=== PATIENT | female | born 1935 | race Caucasian/White ===

== ENCOUNTER → 2016-12-13 | Outpatient (CLI) | payer OTHER ==
[~2016-12-13] MED LIST: ADULT LOW DOSE81 M1 PO; ADVAIR 100/501 DISK IH; ADVAIR HFA120 INHALA IH; ALPRAZOLAM ER1 MG PO; AMLODIPINE BESY10 MG PO; ATIVAN0.5 MG PO; Advair HFA 115/21 IH; Apresoline PO; Aspirin E.C. PO; BENADRYL25 MG PO; BENTYL20 MG PO; BUSPAR10 MG PO; CALCIUM CARBON500 M3 PO; CELEBREX200 MG PO; CELEXA40 MG PO; COUMADIN,JANTOVE5 MG PO; CUBICIN500 MG/10 IV; Catapres-TTS 2 TD; Cozaar PO; DESYREL100 MG PO; DETROL LA2 MG PO; DIABETA,MICRONAS5 MG PO; DIABETA5 MG PO; EFFEXOR XR150 MG; EFFEXOR XR150 MG PO; EFFEXOR75 MG PO; ENABLEX15 MG PO; GLUCOPHAGE500 MG PO; HYDROCODON-ACE1 EAC7 PO; HYDROCODON-ACE1 EAC8 PO; HYDRODIURIL,ORE25 MG PO; HYZAAR 100-21 TABLET PO; Habitrol,Nicoderm CQ TD; ISORDIL10 MG PO; KLONOPIN1 MG PO; LIDODERM 5% P1 PATCH TD; LO-DOSE ASPIRIN81 M1 PO; LOSARTAN POTAS100 MG PO; LOSARTAN POTASS50 MG PO; MELOXICAM15 MG PO; METFORMIN HCL500 MG PO; METOCLOPRAMIDE10 MG PO; MICRONASE2.5 MG PO; MOBIC15 MG PO; MYRBETRIQ25 MG; NEURONTIN100 MG PO; NEURONTIN300 MG PO; NEURONTIN600 MG PO; NEXIUM20 MG PO; NEXIUM40 MG PO; NITROSTAT0.4 MG PO; NORCO 5/3251 TABLET PO; NOVOLOG PE100 UNITS/ SC; Norvasc PO; PERCOCET 5/31 TABLET PO; POTASSIUM CHLO20 ME1 PO; PREDNISONE10 MG PO; PREDNISONE20 MG PO; Proventil,Ventolin H IH; REGLAN10 MG PO; REQUIP0.5 MG PO; Remove Lidoderm Patc TD; SENNA-S TABLET1 EACH PO; SENOKOT S,PE1 TABLET PO; TOFRANIL25 MG PO; TYLENOL REGULA325 MG PO; Toprol XL PO; Tylenol Regular Stre PO; VENLAFAXINE HC150 M1 PO; VICODIN 5-5001 EACH PO; VICODIN,LORT1 TABLET; XANAX1 MG PO; Xanax PO; ZANTAC150 MG PO; ZESTRIL,PRINIVI10 M1 PO
== END | disposition home or self-care (01) ==
LOC: CDC 09:41
DX: Z01.810 Encounter for preprocedural cardiovascular examination (principal); D41.4 Neoplasm of uncertain behavior of bladder
CPT/HCPCS: 93000

== ENCOUNTER 2017-03-05 09:38 | Emergency (ER) | payer OTHER ==
[~2017-03-05] VITALS: Ht 152.4 cm; Wt 75.1 kg
[2017-03-05 10:36] LABS: BASOPHIL COUNT 0.1 K/uL (0-0.1); EOSINOPHIL (%) 4.3 % (0-5); EOSINOPHIL COUNT 0.4 K/uL (0-0.3); HEMATOCRIT 35.4 % (36.0-46.0); IMMATURE GRANULOCYTE (%) 0.9 % (0.0-0.7); IMMATURE GRANULOCYTE COUNT 0.1 K/uL; INSTRUMENT ABS NEUTROPHIL CT 6.7 K/uL; LYMPHOCYTE COUNT 0.9 K/uL (1.0-2.8); MCH 27.7 PG (29.0-34.0); MCHC 29.9 G/DL (30.0-36.0); MCV 92.7 FL (83-99); MEAN PLAT.VOLUME 8.9 uM^3 (9.5-12.4); MONOCYTE COUNT 0.8 K/uL (0-0.8); NEUTROPHIL (%) 75.3 % (45-76); NEUTROPHIL COUNT 6.7 K/uL (1.8-6.4); PLATELET COUNT 218 K/uL (156-360); RBC DIS.WIDTH-CV 15.3 % (11.8-14.6); RBC DIS.WIDTH-SD 52.3 % (39-53); RED BLOOD COUNT 3.82 M/uL (3.80-5.20); WHITE BLOOD COUNT 8.9 K/uL (4.1-10.2)
[2017-03-05 10:48] LABS: CHLORIDE 98 mEq/L (99-109); SODIUM 135 mEq/L (136-147)
[2017-03-05 10:51] LABS: GLUCOSE 182 mg/dL (70-99)
[2017-03-05 10:52] LABS: ANION GAP 9 MEQ/L (2-14)
[2017-03-05 10:53] LABS: TOTAL BILIRUBIN 0.2 mg/dL (0.0-1.0)
[2017-03-05 10:54] LABS: ALKALINE PHOSPHATASE 94 IU/L (3-129); GFR ESTIMATE (CALCULATED) 38 mL/min/
[2017-03-05 10:55] LABS: UREA NITROGEN (BUN) 26 mg/dL (9-23)
[2017-03-05 12:29] LABS: ADD MIUA? YES; BILIRUBIN NEGATIVE; BLOOD SMALL; COLOR YELLOW ((YELLOW)); GLUCOSE (STRIP) NEGATIVE; KETONES NEGATIVE; LEUKOCYTES NEGATIVE; NITRITE NEGATIVE; PROTEIN (STRIP) NEGATIVE; SPECIFIC GRAVITY 1.008 (1.000-1.030); UROBILINOGEN 0.2 MG/DL (0.2-1.0)
[2017-03-05 12:39] LABS: BACTERIA NONE SEEN /HPF; EPITHELIAL CELLS RARE /HPF; MUCUS NONE SEEN /LPF; RED BLOOD CELLS 0-5 /HPF (0-5); WHITE BLOOD CELLS 0-5 /HPF (0-5)
[2017-03-05] MEDS ORDERED: VALTREX1000 MG PO (12:58)
[2017-03-05] MEDS ORDERED: COLACE100 MG PO (12:58)
[2017-03-05] MEDS ORDERED: ULTRAM50 MG PO (12:58)
[2017-03-05] MEDS ORDERED: LIDODERM 5% P1 PATCH TD (12:58)
[2017-03-05 13:44] VITALS: BP 157/65
== END 2017-03-05 13:45 | disposition home or self-care (01) ==
LOC: EME 09:38
PROVIDERS: Emergency Medicine
DX: B02.9 Zoster without complications (principal); R53.1 Weakness; J44.9 Chronic obstructive pulmonary disease, unspecified; J45.909 Unspecified asthma, uncomplicated; C67.9 Malignant neoplasm of bladder, unspecified; R93.8 Abnormal findings on diagnostic imaging of other specified body structures; E11.9 Type 2 diabetes mellitus without complications; Z99.81 Dependence on supplemental oxygen; Z79.82 Long term (current) use of aspirin; Z87.891 Personal history of nicotine dependence
CPT/HCPCS: 71010; 73502; 80053; 81003; 83605; 85025; 99281; 99284

== ENCOUNTER 2017-04-03 12:19 | Observation (INO) | payer OTHER ==
[~2017-04-03] VITALS: Ht 152.4 cm; Wt 73.8 kg
[~2017-04-03 12:19] MED LIST changes: +COLACE100 MG PO; +ULTRAM50 MG PO; +VALTREX1000 MG PO
[2017-04-03 14:49] LABS: POINT-OF-CARE METER ID UU14100415
[2017-04-03 15:09] LABS: TROP-I INTERPRETATION NEGATIVE; TROPONIN-I < 0.01 ng/mL (0.0-0.30)
[2017-04-03 15:16] LABS: CHLORIDE 108 mEq/L (99-109); POTASSIUM 5.6 mEq/L (3.7-5.4); SODIUM 141 mEq/L (136-147)
[2017-04-03 15:19] LABS: GLUCOSE 64 mg/dL (70-99)
[2017-04-03 15:20] LABS: ANION GAP 8 MEQ/L (2-14)
[2017-04-03 15:21] LABS: TOTAL BILIRUBIN 0.1 mg/dL (0.0-1.0)
[2017-04-03 15:22] LABS: ALKALINE PHOSPHATASE 79 IU/L (3-129); GFR ESTIMATE (CALCULATED) 35 mL/min/
[2017-04-03 15:23] LABS: UREA NITROGEN (BUN) 28 mg/dL (9-23)
[2017-04-03 15:31] LABS: HEMATOCRIT 32.1 % (36.0-46.0); MCH 28.2 PG (29.0-34.0); MCHC 29.9 G/DL (30.0-36.0); MCV 94.1 FL (83-99); MEAN PLAT.VOLUME 9.2 uM^3 (9.5-12.4); PLATELET COUNT 192 K/uL (156-360); RBC DIS.WIDTH-CV 15.9 % (11.8-14.6); RBC DIS.WIDTH-SD 54.4 % (39-53); RED BLOOD COUNT 3.41 M/uL (3.80-5.20); WHITE BLOOD COUNT 6.5 K/uL (4.1-10.2)
[2017-04-03 15:56] LABS: POINT-OF-CARE METER ID UU14100415
[2017-04-03] MEDS ORDERED: REQUIP1 MG PO (16:33)
[2017-04-03] MEDS ORDERED: BUSPAR15 MG PO ×2 (16:33)
[2017-04-03] MEDS ORDERED: DUONEB 2.5-0.5 M3 ML AEROSOL (16:34)
[2017-04-03] MEDS ORDERED: PERCOCET 7.51 TABLET PO (16:35)
[2017-04-03] MEDS ORDERED: OMEPRAZOLE40 M1 PO (16:36)
[2017-04-03] MEDS ORDERED: VOLTAREN 1% GE100 GM TP (16:37)
[2017-04-03] MEDS ORDERED: DIABETA2.5 MG PO (16:38)
[2017-04-03] MEDS ORDERED: KLONOPIN0.5 M1 PO (16:38)
[2017-04-03 17:44] LABS: POINT-OF-CARE METER ID UU14100415
[2017-04-03 19:36] LABS: ADD MIUA? YES; BILIRUBIN NEGATIVE; BLOOD SMALL; COLOR YELLOW ((YELLOW)); GLUCOSE (STRIP) NEGATIVE; KETONES NEGATIVE; LEUKOCYTES LARGE; NITRITE NEGATIVE; PROTEIN (STRIP) NEGATIVE; SPECIFIC GRAVITY 1.014 (1.000-1.030); UROBILINOGEN 0.2 MG/DL (0.2-1.0)
[2017-04-03 19:40] VITALS: BP 150/73
[2017-04-03 20:03] LABS: BACTERIA RARE /HPF; EPITHELIAL CELLS RARE /HPF; MUCUS TRACE /LPF; UCUL ADDED? NO; WHITE BLOOD CELLS 30-40 /HPF (0-5)
[2017-04-04] VITALS (8 sets, daily range): BP systolic 133–193; BP diastolic 57–82
[2017-04-04 04:08] LABS: POINT-OF-CARE METER ID UU14162513
[2017-04-04 04:12] LABS: HEMATOCRIT 32.5 % (36.0-46.0); MCH 27.8 PG (29.0-34.0); MCHC 30.2 G/DL (30.0-36.0); MCV 92.3 FL (83-99); MEAN PLAT.VOLUME 9.5 uM^3 (9.5-12.4); PLATELET COUNT 200 K/uL (156-360); RBC DIS.WIDTH-SD 54.1 % (39-53); RED BLOOD COUNT 3.52 M/uL (3.80-5.20); WHITE BLOOD COUNT 7.4 K/uL (4.1-10.2)
[2017-04-04 04:20] LABS: CHLORIDE 109 mEq/L (99-109); POTASSIUM 4.5 mEq/L (3.7-5.4); SODIUM 140 mEq/L (136-147)
[2017-04-04 04:21] LABS: CHLORIDE 109 mEq/L (99-109); POTASSIUM 4.6 mEq/L (3.7-5.4); SODIUM 141 mEq/L (136-147)
[2017-04-04 04:23] LABS: ANION GAP 7 MEQ/L (2-14)
[2017-04-04 04:24] LABS: ANION GAP 7 MEQ/L (2-14)
[2017-04-04 04:26] LABS: GFR ESTIMATE (CALCULATED) 42 mL/min/
[2017-04-04 04:27] LABS: GFR ESTIMATE (CALCULATED) 42 mL/min/; UREA NITROGEN (BUN) 23 mg/dL (9-23)
[2017-04-04 04:28] LABS: GLUCOSE 192 mg/dL (70-99)
[2017-04-04 04:29] LABS: GLUCOSE 193 mg/dL (70-99)
[2017-04-04 07:56] LABS: POINT-OF-CARE METER ID UU13113831
[2017-04-04 10:46] LABS: POINT-OF-CARE METER ID UU14162513
[2017-04-04 11:58] LABS: POINT-OF-CARE METER ID UU14162513
[2017-04-04 16:27] LABS: POINT-OF-CARE METER ID UU14162513
== END 2017-04-04 18:44 | disposition home health service (06) ==
LOC: EME 12:19 → EDOF 17:03 → 5WEST 17:03 → EDOF 17:03 → 5WEST 17:03 → 4EAST 21:28 → 5WEST 21:32
PROVIDERS: Emergency Medicine; Hospitalist; Student in an Organized Health Care Education/Training Program
DX: E16.2 Hypoglycemia, unspecified (principal); E87.5 Hyperkalemia; I12.9 Hypertensive chronic kidney disease with stage 1 through stage 4 chronic kidney disease, or unspecified chronic kidney disease; N18.3 Chronic kidney disease, stage 3 (moderate); J44.9 Chronic obstructive pulmonary disease, unspecified; E78.5 Hyperlipidemia, unspecified; F41.9 Anxiety disorder, unspecified; Z99.81 Dependence on supplemental oxygen; F32.9 Major depressive disorder, single episode, unspecified; N17.9 Acute kidney failure, unspecified; G89.29 Other chronic pain
CPT/HCPCS: 71010; 73565; 80048; 80048 91; 80053; 81003; 82948; 84132 91; 84484; 84999; 85027; 87040; 93005; 94640; 94799; 99202; 99281; 99285; G0378; G8978 GP CJ; G8979 GP CI; J0360; J1644; J2270; J7030; J7042

== ENCOUNTER → 2017-05-30 | Outpatient (CLI) | payer OTHER ==
[~2017-05-30] MED LIST changes: +BUSPAR15 MG PO; +DIABETA2.5 MG PO; +DUONEB 2.5-0.5 M3 ML AEROSOL; +KLONOPIN0.5 M1 PO; +OMEPRAZOLE40 M1 PO; +PERCOCET 7.51 TABLET PO; +REQUIP1 MG PO; +VOLTAREN 1% GE100 GM TP
[2017-05-30 09:22] LABS: HEMATOCRIT 34.1 % (36.0-46.0); MCHC 31.1 G/DL (30.0-36.0); MCV 93.2 FL (83-99); MEAN PLAT.VOLUME 9.3 uM^3 (9.5-12.4); PLATELET COUNT 225 K/uL (156-360); RBC DIS.WIDTH-CV 15.1 % (11.8-14.6); RBC DIS.WIDTH-SD 51.8 % (39-53); RED BLOOD COUNT 3.66 M/uL (3.80-5.20); WHITE BLOOD COUNT 6.9 K/uL (4.1-10.2)
[2017-05-30 09:32] LABS: POINT-OF-CARE METER ID UU13113694
[2017-05-30 09:33] LABS: PROTHROMBIN TIME 10.5 (9.2-11.2); PTT 25.9 (25-32)
== END | disposition home or self-care (01) ==
LOC: OPR 08:21 → EDSTATUS 09:00
PROVIDERS: Thoracic Surgery (Cardiothoracic Vascular Surgery)
PROC: 0BBC3ZX Excision of Right Upper Lung Lobe, Percutaneous Approach, Diagnostic (ICD-10-PCS; principal; 2017-05-30)
DX: C34.11 Malignant neoplasm of upper lobe, right bronchus or lung (principal); Z86.03 Personal history of neoplasm of uncertain behavior; F17.290 Nicotine dependence, other tobacco product, uncomplicated; Z79.82 Long term (current) use of aspirin; Z99.81 Dependence on supplemental oxygen
CPT/HCPCS: 71010; 77012; 82948; 85027; 85610; 85730; 88305; 88341 TC; 88342 TC; J3010

== ENCOUNTER → 2017-06-16 | Outpatient (CLI) | payer OTHER ==
[~2017-06-16] VITALS: Ht 152.4 cm; Wt 73.9 kg
[~2017-06-16] MED LIST changes: +COZAAR100 MG PO
[2017-06-16 11:42] LABS: POINT-OF-CARE METER ID UU13113819
== END | disposition home or self-care (01) ==
LOC: OPR 08:29 → EDSTATUS 09:00 → OPR 09:00
PROVIDERS: Thoracic Surgery (Cardiothoracic Vascular Surgery)
PROC: 0BBJ3ZX Excision of Left Lower Lung Lobe, Percutaneous Approach, Diagnostic (ICD-10-PCS; principal; 2017-06-16)
DX: C34.32 Malignant neoplasm of lower lobe, left bronchus or lung (principal); F17.200 Nicotine dependence, unspecified, uncomplicated; Z85.51 Personal history of malignant neoplasm of bladder; J44.9 Chronic obstructive pulmonary disease, unspecified; I12.9 Hypertensive chronic kidney disease with stage 1 through stage 4 chronic kidney disease, or unspecified chronic kidney disease; N18.9 Chronic kidney disease, unspecified; G47.33 Obstructive sleep apnea (adult) (pediatric); G25.81 Restless legs syndrome; Z79.84 Long term (current) use of oral hypoglycemic drugs; Z79.82 Long term (current) use of aspirin
CPT/HCPCS: 71010; 77012; 82948; 88305; 88341 TC; 88342 TC; J3010

== ENCOUNTER 2018-03-12 16:13 | Inpatient (IN) | payer OTHER ==
[~2018-03-12] VITALS: Ht 152.4 cm; Wt 66.9 kg
[~2018-03-12 16:13] MED LIST changes: +GLUCOPHAGE XR,500 MG PO; +PERCOCET 10/1 TABLET PO; -PERCOCET 7.51 TABLET PO
[2018-03-12 16:51] LABS: BASOPHIL (%) 0.2 % (0-1); EOSINOPHIL (%) 0.7 % (0-5); EOSINOPHIL COUNT 0.1 K/uL (0-0.3); HEMOGLOBIN 9.9 G/DL (11.9-15.5); IMMATURE GRANULOCYTE (%) 0.6 % (0.0-0.7); LYMPHOCYTE (%) 3.5 % (15-42); LYMPHOCYTE COUNT 0.6 K/uL (1.0-2.8); MCH 28.8 PG (29.0-34.0); MCHC 30.9 G/DL (30.0-36.0); MONOCYTE (%) 5.2 % (3-12); MONOCYTE COUNT 0.8 K/uL (0-0.8); NEUTROPHIL (%) 89.8 % (45-76); NEUTROPHIL COUNT 14.3 K/uL (1.8-6.4); PLATELET COUNT 219 K/uL (156-360); RBC DIS.WIDTH-CV 16.1 % (11.8-14.6); RBC DIS.WIDTH-SD 54.5 % (39-53); RED BLOOD COUNT 3.44 M/uL (3.80-5.20); WHITE BLOOD COUNT 15.9 K/uL (4.1-10.2)
[2018-03-12 17:05] LABS: ALBUMIN 3.5 g/dL (3.2-4.8)
[2018-03-12 17:06] LABS: CHLORIDE 97 mEq/L (99-109); POTASSIUM 4.2 mEq/L (3.7-5.4); SODIUM 140 mEq/L (136-147)
[2018-03-12 17:08] LABS: GLUCOSE 131 mg/dL (70-99); TOTAL PROTEIN 6.8 g/dL (6.4-8.3)
[2018-03-12 17:10] LABS: TOTAL BILIRUBIN 0.3 mg/dL (0.0-1.0)
[2018-03-12 17:11] LABS: ALKALINE PHOSPHATASE 93 IU/L (3-129)
[2018-03-12 17:12] LABS: CREATININE 1.5 mg/dL (0.6-1.3); GFR ESTIMATE (CALCULATED) 35 mL/min/
[2018-03-12 17:13] LABS: AST (GOT) 20 IU/L (2-34); UREA NITROGEN (BUN) 39 mg/dL (9-23)
[2018-03-12 17:14] LABS: ALT (GPT) 16 IU/L (3-49); TROP-I INTERPRETATION NEGATIVE; TROPONIN-I 0.02 ng/mL (0.0-0.30)
[2018-03-12 17:40] LABS: APPEARANCE CLEAR ((CLEAR)); BILIRUBIN NEGATIVE; BLOOD LARGE; COLOR YELLOW ((YELLOW)); GLUCOSE (STRIP) NEGATIVE; KETONES NEGATIVE; LEUKOCYTES NEGATIVE; NITRITE NEGATIVE; PROTEIN (STRIP) 100; UROBILINOGEN 0.2 MG/DL (0.2-1.0)
[2018-03-12 17:48] LABS: BACTERIA RARE /HPF; EPITHELIAL CELLS RARE /HPF; MUCUS TRACE /LPF; RED BLOOD CELLS 30-40 /HPF (0-5); UCUL ADDED? YES; WHITE BLOOD CELLS 15-20 /HPF (0-5)
[2018-03-12] MEDS ORDERED: CLONAZEPAM0.5 MG PO (19:16)
[2018-03-12] MEDS ORDERED: PROAIR HFA8.5 GM IH (19:17)
[2018-03-12] MEDS ORDERED: FUROSEMIDE40 MG PO (19:18)
[2018-03-12 20:09] LABS: BASE EXCESS 6.9 mEq/L (-3 to +3); BICARBONATE 33.7 mEq/L (22-26); CARBOXY HGB 0.5 % (0-5); METHEMOGLOBIN 0.4 % (0-1.5); PCO2 61 mm Hg (35-45); PO2 80 mm Hg (80-100); pH 7.35 (7.35-7.45)
[2018-03-12 20:10] LABS: COMMENTS - BLOOD GASES A+C+; DEVICE NC; O2 FLOW 2 L/MIN; SITE RR
[2018-03-12 21:42] VITALS: BP 145/61
[2018-03-12 23:39] VITALS: BP 114/55
[2018-03-13 03:42] VITALS: BP 121/60
[2018-03-13 06:12] LABS: BASOPHIL (%) 0.3 % (0-1); EOSINOPHIL (%) 1.9 % (0-5); EOSINOPHIL COUNT 0.2 K/uL (0-0.3); HEMATOCRIT 29.6 % (36.0-46.0); IMMATURE GRANULOCYTE (%) 0.6 % (0.0-0.7); LYMPHOCYTE COUNT 0.7 K/uL (1.0-2.8); MCH 28.2 PG (29.0-34.0); MCHC 30.4 G/DL (30.0-36.0); MCV 92.8 FL (83-99); MONOCYTE (%) 6.1 % (3-12); MONOCYTE COUNT 0.6 K/uL (0-0.8); NEUTROPHIL (%) 84.1 % (45-76); NEUTROPHIL COUNT 8.6 K/uL (1.8-6.4); PLATELET COUNT 191 K/uL (156-360); RBC DIS.WIDTH-SD 55.1 % (39-53); RED BLOOD COUNT 3.19 M/uL (3.80-5.20); WHITE BLOOD COUNT 10.2 K/uL (4.1-10.2)
[2018-03-13 06:36] LABS: CHLORIDE 103 MEQ/L (99-109); CREATININE 1.2 MG/DL (0.6-1.3); GFR ESTIMATE (CALCULATED) 46 mL/min/; POTASSIUM 3.8 MEQ/L (3.7-5.4); SODIUM 143 MEQ/L (136-147); UREA NITROGEN (BUN) 30 mg/dL (9-23)
[2018-03-13 06:37] LABS: GLUCOSE 81 mg/dL (70-99)
[2018-03-13 08:08] VITALS: BP 121/70
[2018-03-13 16:51] VITALS: BP 149/67
[2018-03-13 19:40] VITALS: BP 170/83
[2018-03-14 00:41] VITALS: BP 172/79
[2018-03-14 04:32] VITALS: BP 174/75
[2018-03-14 06:02] LABS: BASOPHIL (%) 0.3 % (0-1); EOSINOPHIL (%) 0.4 % (0-5); HEMATOCRIT 30.4 % (36.0-46.0); HEMOGLOBIN 9.2 G/DL (11.9-15.5); IMMATURE GRANULOCYTE (%) 0.5 % (0.0-0.7); LYMPHOCYTE (%) 10.5 % (15-42); LYMPHOCYTE COUNT 1.2 K/uL (1.0-2.8); MCH 27.5 PG (29.0-34.0); MCHC 30.3 G/DL (30.0-36.0); MCV 90.7 FL (83-99); MONOCYTE COUNT 0.9 K/uL (0-0.8); NEUTROPHIL (%) 80.3 % (45-76); NEUTROPHIL COUNT 8.8 K/uL (1.8-6.4); PLATELET COUNT 205 K/uL (156-360); RBC DIS.WIDTH-CV 16.1 % (11.8-14.6); RBC DIS.WIDTH-SD 53.3 % (39-53); RED BLOOD COUNT 3.35 M/uL (3.80-5.20); WHITE BLOOD COUNT 10.9 K/uL (4.1-10.2)
[2018-03-14 06:33] LABS: CHLORIDE 98 MEQ/L (99-109); GFR ESTIMATE (CALCULATED) 56 mL/min/; POTASSIUM 3.6 MEQ/L (3.7-5.4); SODIUM 139 MEQ/L (136-147); UREA NITROGEN (BUN) 23 mg/dL (9-23)
[2018-03-14 06:37] LABS: GLUCOSE 141 mg/dL (70-99)
[2018-03-14 07:49] VITALS: BP 166/101
[2018-03-14 16:30] VITALS: BP 147/63
[2018-03-15 00:34] VITALS: BP 140/62
[2018-03-15 06:03] LABS: CHLORIDE 100 MEQ/L (99-109); CREATININE 1.1 MG/DL (0.6-1.3); GFR ESTIMATE (CALCULATED) 51 mL/min/; POTASSIUM 4.1 MEQ/L (3.7-5.4); SODIUM 140 MEQ/L (136-147)
[2018-03-15 06:04] LABS: GLUCOSE 101 mg/dL (70-99); UREA NITROGEN (BUN) 36 mg/dL (9-23)
[2018-03-15 10:42] VITALS: BP 158/69
[2018-03-15 13:16] VITALS: BP 156/67
[2018-03-15] MEDS ORDERED: NEURONTIN600 MG PO (17:10)
[2018-03-15] MEDS ORDERED: K-DUR20 MEQ PO (17:11)
[2018-03-15] MEDS ORDERED: PREDNISONE10 M1 PO (17:12)
[2018-03-15] MEDS ORDERED: COZAAR100 MG PO (17:25)
== END 2018-03-15 18:27 | disposition home health service (06) | DRG 194 ==
LOC: EME 16:13 → EDOF 19:39 → 3EAST 19:39 → ENRESERV 19:48 → 3EAST 20:47
PROVIDERS: Emergency Medicine; Family Medicine Sports Medicine
DX: J18.9 Pneumonia, unspecified organism (principal); C34.11 Malignant neoplasm of upper lobe, right bronchus or lung; I13.0 Hypertensive heart and chronic kidney disease with heart failure and stage 1 through stage 4 chronic kidney disease, or unspecified chronic kidney disease; E11.22 Type 2 diabetes mellitus with diabetic chronic kidney disease; I50.9 Heart failure, unspecified; N18.9 Chronic kidney disease, unspecified; E11.42 Type 2 diabetes mellitus with diabetic polyneuropathy; E11.65 Type 2 diabetes mellitus with hyperglycemia; J44.9 Chronic obstructive pulmonary disease, unspecified; Z99.81 Dependence on supplemental oxygen; Z66 Do not resuscitate; R41.0 Disorientation, unspecified; R30.0 Dysuria; R35.8 Other polyuria; D64.9 Anemia, unspecified; G89.29 Other chronic pain; M54.5 Low back pain; M79.1 Myalgia; G43.909 Migraine, unspecified, not intractable, without status migrainosus; J30.9 Allergic rhinitis, unspecified; L30.9 Dermatitis, unspecified; K21.9 Gastro-esophageal reflux disease without esophagitis; M19.90 Unspecified osteoarthritis, unspecified site; E78.5 Hyperlipidemia, unspecified; F32.9 Major depressive disorder, single episode, unspecified; F41.9 Anxiety disorder, unspecified; Z87.891 Personal history of nicotine dependence; Z79.4 Long term (current) use of insulin; Z79.82 Long term (current) use of aspirin; Z86.73 Personal history of transient ischemic attack (TIA), and cerebral infarction without residual deficits; Z87.01 Personal history of pneumonia (recurrent)
CPT/HCPCS: 36600; 70450; 71046; 80048; 80053; 81003; 82803; 83605; 84484; 85025; 87070; 87077; 87086; 87186; 87205; 87449; 87502; 94640; 94640 76; 94799; 99202; 99281; 99285; J0456; J0692; J0696; J1650; J1956; J7030; J7512

== ENCOUNTER 2018-05-24 07:56 | Inpatient (IN) | payer OTHER ==
[~2018-05-24] VITALS: Ht 152.4 cm; Wt 93.0 kg
[~2018-05-24 07:56] MED LIST changes: +CLONAZEPAM0.5 MG PO; +FUROSEMIDE40 MG PO; +K-DUR20 MEQ PO; +PREDNISONE10 M1 PO; +PROAIR HFA8.5 GM IH
[2018-05-24 08:24] LABS: BASOPHIL (%) 0.5 % (0-1); BASOPHIL COUNT 0.1 K/uL (0-0.1); EOSINOPHIL (%) 1.7 % (0-5); EOSINOPHIL COUNT 0.2 K/uL (0-0.3); HEMATOCRIT 30.6 % (36.0-46.0); HEMOGLOBIN 9.3 G/DL (11.9-15.5); LYMPHOCYTE (%) 2.9 % (15-42); LYMPHOCYTE COUNT 0.3 K/uL (1.0-2.8); MCH 27.3 PG (29.0-34.0); MCHC 30.4 G/DL (30.0-36.0); MCV 89.7 FL (83-99); MONOCYTE (%) 6.3 % (3-12); MONOCYTE COUNT 0.7 K/uL (0-0.8); NEUTROPHIL (%) 87.6 % (45-76); NEUTROPHIL COUNT 10.1 K/uL (1.8-6.4); PLATELET COUNT 308 K/uL (156-360); RBC DIS.WIDTH-CV 15.2 % (11.8-14.6); RBC DIS.WIDTH-SD 50.2 % (39-53); RED BLOOD COUNT 3.41 M/uL (3.80-5.20); WHITE BLOOD COUNT 11.6 K/uL (4.1-10.2)
[2018-05-24 08:33] LABS: AMYLASE 65 IU/L (1-118); CHLORIDE 95 mEq/L (99-109); POTASSIUM 5.6 mEq/L (3.7-5.4); SODIUM 134 mEq/L (136-147)
[2018-05-24 08:35] LABS: GLUCOSE 188 mg/dL (70-99)
[2018-05-24 08:38] LABS: SERUM ETHYL ALCOHOL < 10 mg/dL
[2018-05-24 08:39] LABS: CREATININE 1.7 mg/dL (0.6-1.3); GFR ESTIMATE (CALCULATED) 31 mL/min/
[2018-05-24 08:40] LABS: UREA NITROGEN (BUN) 46 mg/dL (9-23)
[2018-05-24 08:42] LABS: LIPASE 49 U/L (1.0-51.0)
[2018-05-24 11:52] LABS: APPEARANCE SL.HAZY ((CLEAR)); BILIRUBIN NEGATIVE; BLOOD MODERATE; COLOR YELLOW ((YELLOW)); GLUCOSE (STRIP) NEGATIVE; KETONES NEGATIVE; LEUKOCYTES NEGATIVE; NITRITE NEGATIVE; PROTEIN (STRIP) 30; SPECIFIC GRAVITY 1.012 (1.000-1.030); UROBILINOGEN 0.2 MG/DL (0.2-1.0)
[2018-05-24 11:56] LABS: BACTERIA RARE /HPF; CALCIUM OXALATE CRYSTALS 1+ /HPF; EPITHELIAL CELLS RARE /HPF; HYALINE CASTS 0-5 /LPF; MUCUS NONE SEEN /LPF; RED BLOOD CELLS 15-20 /HPF (0-5); UCUL ADDED? YES; WHITE BLOOD CELLS 20-30 /HPF (0-5)
[2018-05-24 12:09] LABS: AMPHETAMINE NEGATIVE (500 ng/mL); BENZODIAZEPINES NEGATIVE (150 ng/mL); COCAINE NEGATIVE (150 ng/mL); METHADONE NEGATIVE (200 ng/mL); METHAMPHETAMINE NEGATIVE (500 ng/mL); OPIATES (MORPHINE) NEGATIVE (100 ng/mL); PHENCYCLIDINE NEGATIVE (25 ng/mL); THC CANNABINOIDS NEGATIVE (50 ng/mL); TRICYCLIC ANTIDEPRESSANTS NEGATIVE (300 ng/mL)
[2018-05-24 12:10] LABS: BARBITURATES NEGATIVE (200 ng/mL); BUPRENORPHINE NEGATIVE (10 ng/mL); OXYCODONE NEGATIVE (100 ng/mL); PROPOXYPHENE NEGATIVE (300 ng/mL)
[2018-05-24 18:36] VITALS: BP 149/65
[2018-05-24 19:18] VITALS: BP 138/62
[2018-05-24 23:34] VITALS: BP 173/72
[2018-05-25 03:13] VITALS: BP 175/76
[2018-05-25 07:03] LABS: HEMATOCRIT 29.7 % (36.0-46.0); MCHC 30.3 G/DL (30.0-36.0); MCV 89.2 FL (83-99); PLATELET COUNT 338 K/uL (156-360); RBC DIS.WIDTH-CV 15.2 % (11.8-14.6); RBC DIS.WIDTH-SD 49.1 % (39-53); RED BLOOD COUNT 3.33 M/uL (3.80-5.20); WHITE BLOOD COUNT 8.2 K/uL (4.1-10.2)
[2018-05-25 07:24] LABS: ALKALINE PHOSPHATASE 107 IU/L (3-129); ALT (GPT) 14 IU/L (3-49); AST (GOT) 25 IU/L (2-34); CHLORIDE 97 MEQ/L (99-109); GFR ESTIMATE (CALCULATED) 46 mL/min/; GLUCOSE 163 mg/dL (70-99); POTASSIUM 5.6 MEQ/L (3.7-5.4); SODIUM 136 MEQ/L (136-147); TOTAL BILIRUBIN 0.4 MG/DL (0.0-1.0); TOTAL PROTEIN 6.5 G/DL (6.4-8.3); UREA NITROGEN (BUN) 31 mg/dL (9-23)
[2018-05-25 07:25] LABS: CREATININE 1.2 MG/DL (0.6-1.3)
[2018-05-25 08:37] VITALS: BP 154/72
[2018-05-25 11:27] VITALS: BP 117/55
[2018-05-25 16:27] VITALS: BP 139/63
[2018-05-25 23:03] VITALS: BP 135/60
[2018-05-26 08:35] VITALS: BP 126/57
[2018-05-26 17:11] VITALS: BP 120/88
[2018-05-26 23:52] VITALS: BP 100/17; BP 100/47
[2018-05-27 07:53] VITALS: BP 137/74
[2018-05-27 15:57] VITALS: BP 135/56
[2018-05-27 17:47] LABS: CHLORIDE 97 MEQ/L (99-109); CREATININE 1.5 MG/DL (0.6-1.3); GFR ESTIMATE (CALCULATED) 35 mL/min/; GLUCOSE 137 mg/dL (70-99); POTASSIUM 4.9 MEQ/L (3.7-5.4); SODIUM 137 MEQ/L (136-147)
[2018-05-27 17:48] LABS: UREA NITROGEN (BUN) 48 mg/dL (9-23)
[2018-05-27 18:13] LABS: APPEARANCE CLOUDY ((CLEAR)); BILIRUBIN NEGATIVE; BLOOD LARGE; COLOR YELLOW ((YELLOW)); GLUCOSE (STRIP) NEGATIVE; KETONES NEGATIVE; LEUKOCYTES TRACE; NITRITE NEGATIVE; PROTEIN (STRIP) 100; SPECIFIC GRAVITY 1.012 (1.000-1.030); UROBILINOGEN 0.2 MG/DL (0.2-1.0)
[2018-05-27 19:05] LABS: BACTERIA 1+ /HPF; EPITHELIAL CELLS NONE SEEN /HPF; MUCUS NONE SEEN /LPF
[2018-05-27 23:25] VITALS: BP 123/56
[2018-05-28 06:45] LABS: BASOPHIL (%) 0.4 % (0-1); EOSINOPHIL (%) 3.6 % (0-5); EOSINOPHIL COUNT 0.3 K/uL (0-0.3); HEMATOCRIT 31.3 % (36.0-46.0); HEMOGLOBIN 9.3 G/DL (11.9-15.5); IMMATURE GRANULOCYTE (%) 1.1 % (0.0-0.7); LYMPHOCYTE COUNT 0.8 K/uL (1.0-2.8); MCH 26.6 PG (29.0-34.0); MCHC 29.7 G/DL (30.0-36.0); MCV 89.4 FL (83-99); MONOCYTE (%) 13.1 % (3-12); MONOCYTE COUNT 1.2 K/uL (0-0.8); NEUTROPHIL (%) 72.8 % (45-76); NEUTROPHIL COUNT 6.8 K/uL (1.8-6.4); PLATELET COUNT 320 K/uL (156-360); RBC DIS.WIDTH-CV 15.4 % (11.8-14.6); RBC DIS.WIDTH-SD 50.8 % (39-53); WHITE BLOOD COUNT 9.4 K/uL (4.1-10.2)
[2018-05-28 08:16] VITALS: BP 149/60
[2018-05-28 08:22] LABS: CHLORIDE 97 MEQ/L (99-109); CREATININE 1.4 MG/DL (0.6-1.3); GFR ESTIMATE (CALCULATED) 38 mL/min/; GLUCOSE 137 mg/dL (70-99); POTASSIUM 4.8 MEQ/L (3.7-5.4); SODIUM 138 MEQ/L (136-147); THYROTROPIN (TSH) 0.88 MIU/L (0.4-5.5); UREA NITROGEN (BUN) 50 mg/dL (9-23)
[2018-05-28 15:30] VITALS: BP 110/76
[2018-05-28 23:49] VITALS: BP 117/74
[2018-05-29 08:00] VITALS: BP 122/77
[2018-05-29 15:25] VITALS: BP 128/58
[2018-05-29 23:22] VITALS: BP 109/51
[2018-05-30 06:49] LABS: BASOPHIL (%) 0.6 % (0-1); BASOPHIL COUNT 0.1 K/uL (0-0.1); EOSINOPHIL (%) 4.5 % (0-5); EOSINOPHIL COUNT 0.5 K/uL (0-0.3); HEMATOCRIT 31.8 % (36.0-46.0); HEMOGLOBIN 9.2 G/DL (11.9-15.5); IMMATURE GRANULOCYTE (%) 0.6 % (0.0-0.7); LYMPHOCYTE (%) 9.7 % (15-42); LYMPHOCYTE COUNT 1.1 K/uL (1.0-2.8); MCHC 28.9 G/DL (30.0-36.0); MCV 93.3 FL (83-99); MONOCYTE COUNT 1.2 K/uL (0-0.8); NEUTROPHIL (%) 73.6 % (45-76); NRBC (%) 0.5 /100 WBC (0-0); PLATELET COUNT 335 K/uL (156-360); RBC DIS.WIDTH-CV 15.7 % (11.8-14.6); RBC DIS.WIDTH-SD 53.1 % (39-53); RED BLOOD COUNT 3.41 M/uL (3.80-5.20); WHITE BLOOD COUNT 10.8 K/uL (4.1-10.2)
[2018-05-30 07:11] LABS: CHLORIDE 96 MEQ/L (99-109); CREATININE 1.7 MG/DL (0.6-1.3); GFR ESTIMATE (CALCULATED) 31 mL/min/; GLUCOSE 118 mg/dL (70-99); POTASSIUM 5.5 MEQ/L (3.7-5.4); SODIUM 139 MEQ/L (136-147); UREA NITROGEN (BUN) 59 mg/dL (9-23)
[2018-05-30 08:28] VITALS: BP 115/59
[2018-05-30] MEDS ORDERED: AMOX TR-K CLV1 EAC3 PO (14:45)
[2018-05-30] MEDS ORDERED: TYLENOL REGULA325 MG PO (14:49)
[2018-05-30] MEDS ORDERED: NEURONTIN600 MG PO (14:50)
[2018-05-30] MEDS ORDERED: BUSPAR10 MG PO (14:50)
[2018-05-30] MEDS ORDERED: MAG-AL PLUS SUS30 ML PO (14:51)
[2018-05-30] MEDS ORDERED: DOCUSATE SODIU100 MG PO (14:52)
[2018-05-30] MEDS ORDERED: ONDANSETRON ODT4 MG PO (14:52)
[2018-05-30] MEDS ORDERED: BISAC-EVAC10 MG PR (14:52)
[2018-05-30] MEDS ORDERED: Milk Of Magnesia,MOM PO (14:52)
[2018-05-30 15:54] VITALS: BP 130/60
== END 2018-05-30 18:24 | DRG 551 ==
LOC: TRA 07:56 → EDOF 14:37 → 3EAST 14:37 → ENRESERV 16:06 → 3EAST 17:58
PROVIDERS: Emergency Medicine; Family Medicine Sports Medicine; Student in an Organized Health Care Education/Training Program
DX: S12.500A Unspecified displaced fracture of sixth cervical vertebra, initial encounter for closed fracture (principal); J69.0 Pneumonitis due to inhalation of food and vomit; I13.0 Hypertensive heart and chronic kidney disease with heart failure and stage 1 through stage 4 chronic kidney disease, or unspecified chronic kidney disease; S32.019A Unspecified fracture of first lumbar vertebra, initial encounter for closed fracture; S32.029A Unspecified fracture of second lumbar vertebra, initial encounter for closed fracture; S32.039A Unspecified fracture of third lumbar vertebra, initial encounter for closed fracture; S32.049A Unspecified fracture of fourth lumbar vertebra, initial encounter for closed fracture; S32.059A Unspecified fracture of fifth lumbar vertebra, initial encounter for closed fracture; Z66 Do not resuscitate; W10.9XXA Fall (on) (from) unspecified stairs and steps, initial encounter; F05 Delirium due to known physiological condition; F33.9 Major depressive disorder, recurrent, unspecified; C34.11 Malignant neoplasm of upper lobe, right bronchus or lung; N18.2 Chronic kidney disease, stage 2 (mild); E11.22 Type 2 diabetes mellitus with diabetic chronic kidney disease; E11.51 Type 2 diabetes mellitus with diabetic peripheral angiopathy without gangrene; E78.5 Hyperlipidemia, unspecified; D64.9 Anemia, unspecified; E87.6 Hypokalemia; G30.9 Alzheimer's disease, unspecified; F02.80 Dementia in other diseases classified elsewhere, unspecified severity, without behavioral disturbance, psychotic disturbance, mood disturbance, and anxiety; G89.29 Other chronic pain; H91.90 Unspecified hearing loss, unspecified ear; I25.10 Atherosclerotic heart disease of native coronary artery without angina pectoris; I50.9 Heart failure, unspecified; J44.9 Chronic obstructive pulmonary disease, unspecified; M43.12 Spondylolisthesis, cervical region; M48.02 Spinal stenosis, cervical region; R54 Age-related physical debility; F41.9 Anxiety disorder, unspecified; E11.65 Type 2 diabetes mellitus with hyperglycemia; Y92.009 Unspecified place in unspecified non-institutional (private) residence as the place of occurrence of the external cause; Z99.81 Dependence on supplemental oxygen; Z79.82 Long term (current) use of aspirin; Z79.4 Long term (current) use of insulin; Z87.891 Personal history of nicotine dependence; Z91.013 Allergy to seafood; Z91.041 Radiographic dye allergy status; Z88.1 Allergy status to other antibiotic agents; Z79.51 Long term (current) use of inhaled steroids
CPT/HCPCS: 70450; 71045; 71250; 72020; 72040; 72050; 72125; 72128; 72131; 73090; 73502; 74176; 80047; 80048; 80053; 81003; 82150; 82607; 83690; 84443; 85025; 85027; 86850; 86900; 86901; 87086 GA; 93005; 94640; 94760; 94799; 97530 GO; 97530 GP; 99202; 99281; 99285; A6214; G0480; J1100; J7120